=== PATIENT | male | born 1955 | race African-American/Black ===

== ENCOUNTER 2016-08-30 16:42 | Emergency (ER) | payer OTHER ==
[2016-08-30] MEDS ORDERED: Ketorolac Tromethamine 30 MG/ML VIAL ONE (17:39)
== END 2016-08-30 18:22 | disposition home or self-care (01) ==
LOC: MADERS 16:42
DX: M62.89 Other specified disorders of muscle (principal); F17.210 Nicotine dependence, cigarettes, uncomplicated
CPT/HCPCS: 96372; J1885